=== PATIENT | female | born 1970 | race Caucasian/White ===

== ENCOUNTER 2025-01-13 18:18 | Emergency (ER) | payer OTHER, SELFPAY ==
[2025-01-13] VITALS (49 sets, daily range): BP systolic 116–190; BP diastolic 66–126; PULSE 70–112; O2SAT 94–100; BMI 28.3
[2025-01-13] MEDS: METHYLPREDNISOLONE SOD SUCC PF 125 MG/2 ML VIAL IVP (18:26)
[2025-01-13] MEDS: EPINEPHrine 1 MG/10 ML SYRINGE 0.3 MG IM (18:26)
[2025-01-13] MEDS: DIPHENHYDRAMINE HCL 50 MG/ML VIAL 25 MG IV (18:26)
[2025-01-13] MEDS: FAMOTIDINE/PF 20 MG/2 ML VIAL IV (18:26)
[2025-01-13] MEDS: 0.9 % SODIUM CHLORIDE 1,000 ML 250 ML IV (18:32)
--- NOTE | 2025-01-13 18:47 | ECG_ITS ---
[facility] Test Date: 2025-01-13 Pat Name: LYNSEY FONG Department: Room: - Gender: Female Rn Ed: : 1970 Requested By: [id number] Order Number: [id number] Reading MD: FAIZA LEHMAN M.D. Measurements Intervals Waldo Rate: 71 P: 54 IL: 124 QRS: 28 QRSD: 88 T: 50 QT: 402 QTc: 425 Interpretive Statements 1100 Sinus rhythm 9110 normal ECG No previous ECG available for comparison Electronically Signed On 01-14-2025 21:41:31 EDT by FAIZA LEHMAN M.D.
[2025-01-13 18:53] LABS: Basophils Absolute Auto 0.1 10^3/uL (0.0-0.1); Basophils Percent Auto 0.9 % (0.2-2.0); Eosinophils Absolute Auto 0.1 10^3/uL (0.0-0.7); Eosinophils Percent Auto 1.9 % (0.9-7.0); Hematocrit 39.3 % (36.0-48.0); Hemoglobin 13.3 g/dL (12.0-16.0); Immature Granulocytes Abs Auto 0.02 10^3/uL (0.00-0.03); Immature Granulocytes Pct Auto 0.3 % (0.0-0.5); Lymphocytes Absolute Auto 1.7 10^3/uL (1.2-3.8); Lymphocytes Percent Auto 29.7 % (20.5-60.0); Mean Corpuscular HGB Conc 33.8 g/dL (29.9-35.2); Mean Corpuscular Hemoglobin 29.5 pg (26.7-34.0); Mean Corpuscular Volume 87.1 fL (81.0-99.0); Mean Platelet Volume 10.5 fL (9.5-13.5); Monocytes Absolute Auto 0.4 10^3/uL (0.3-0.8); Monocytes Percent Auto 7.2 % (1.7-12.0); Neutrophils Absolute Auto 3.5 10^3/uL (1.4-6.5); Platelet Count 303 10^3/uL (150-450); Red Blood Count 4.51 10^6/uL (4.20-5.40); Red Cell Distribution Width 12.8 % (11.0-15.0); White Blood Count 5.8 10^3/uL (4.0-11.0)
[2025-01-13] MEDS: FENTANYL CITRATE/PF 100 MCG/2 ML VIAL 50 MCG IV ×2 (18:56→19:06)
[2025-01-13] MEDS: PROPOFOL 200 MG/20 ML VIAL 150 MG IVP (18:59)
[2025-01-13] MEDS: PROPOFOL 1,000 MG/100 ML VIAL 2.245 MG IV (19:05)
--- NOTE | 2025-01-13 19:06 | ED_ITS ---
HPI - Allergic Reaction General Chief complaint: Allergic Reaction Stated complaint: POSS ALLERGIC REACTION Time Seen by Provider: 01/13/25 18:20 Source: patient Mode of arrival: walk-in Limitations: no limitations History of Present Illness HPI narrative: The patient is 54-year-old female was coming to the ER with a history of recent dental infection although she was not specifically seen by his dentist yet, the patient is coming with a oral swelling that has been going on for the last according to her at least 20 minutes although it could be more than that she has been applying Orajel for her dental problem, patient has been having swelling with difficulty speaking that showed up over the last 20 minutes She denied any exposure to any new medication she used ibuprofen for her dental pain as well but she did not do that before and the Orajel she has been applying for the last week at least Related Data Allergies Allergy/AdvReac Type Severity Reaction Status Date / Time nitrofurantoin (From Allergy Severe Anaphylaxis Verified 01/13/25 18:21 Macrobid) Review of Systems ROS Status of ROS 10 or more systems reviewed and unremark able except as noted in history and below PFSH PFSH Social History Little interest or pleasure in doing things: not at all Feeling down, depressed, or hopeless: not at all Exam Narrative Exam Narrative: Nurses notes and vital signs reviewed and patient is not hypoxic. General: Crying distressed Skin: Warm, dry, no pallor noted. No rash. Head: Normocephalic, atraumatic. Neck: Supple, non-tender. Eye: Pupils are equal, round and EOMI. No scleral icterus. Ears, Nose, Mouth, and Throat: T significant swelling noted in the airway, with angioedema like in the upper palate and the tongue is not swollen. Cardiovascular: Regular Rate and Rhythm without murmur, gallop or rub. Respiratory: No accessory muscle use or respiratory distress. Lungs are clear to auscultation, no wheezing, rales or rhonchi Chest Wall: no tenderness Back: No midline thoracic or lumbar vertebral tenderness. No CVA tenderness Musculoskeletal: normal ROM, no calf or popliteal tenderness, no lower extremity edema/swelling GI: Abdomen is soft, non-distended. Normal bowel sounds. No masses appreciated. No tenderness to palpation. No rebound, guarding, or rigidity noted. Neurological: A&O x4. No cranial nerve dysfunction observed. No truncal ataxia. Moves all extremities. Sensation intact. Psychiatric: Cooperative and interactive. Normal mood and affect. Constitutional Vital Signs, click to edit/add: Last Vital Signs Pulse 79 01/13/25 18:21 Resp 22 H 01/13/25 18:21 BP 188/88 H 01/13/25 18:21 Pulse Ox 99 01/13/25 18:21 O2 Del Method Room Air 01/13/25 18:21 Course Vital Signs Vital signs: Vital Signs Pulse Rate 79 01/13/25 18:21 Respiratory Rate 22 H 01/13/25 18:21 Blood Pressure 188/88 H 01/13/25 18:21 Pulse Oximetry 99 01/13/25 18:21 Oxygen Delivery Method Room Air 01/13/25 18:21 Pulse Rate 79 01/13/25 18:21 Respiratory Rate 22 H 01/13/25 18:21 Blood Pressure 188/88 H 01/13/25 18:21 Pulse Oximetry 99 01/13/25 18:21 Oxygen Delivery Method Room Air 01/13/25 18:21 MDM - Allergic Reaction MDM Narrative Medical decision making narrative: The patient was intubated being conscious initially 7.5 tube size The patient then was starting propofol after the propofol bolus Workup still pending after the initial Solu-Medrol Benadryl and epinephrine in addition to Pepcid that were given to cover Allergy Lab Data Labs: Lab Results 01/13/25 Range/Units 18:33 WBC 5.8 (4.0-11.0) 10^3/uL RBC 4.51 (4.20-5.40) 10^6/uL Hgb 13.3 (12.0-16.0) g/dL Hct 39.3 (36.0-48.0) % MCV 87.1 (81.0-99.0) fL MCH 29.5 (26.7-34.0) pg MCHC 33.8 (29.9-35.2) g/dL RDW 12.8 (11.0-15.0) % Plt Count 303 (150-450) 10^3/uL MPV 10.5 (9.5-13.5) fL Neut % (Auto) 60.0 (43.0-75.0) % Lymph % (Auto) 29.7 (20.5-60.0) % Hubbard % (Auto) 7.2 (1.7-12.0) % Eos % (Auto) 1.9 (0.9-7.0) % Baso % (Auto) 0.9 (0.2-2.0) % Neut # (Auto) 3.5 (1.4-6.5) 10^3/uL Lymph # (Auto) 1.7 (1.2-3.8) 10^3/uL Hubbard # (Auto) 0.4 (0.3-0.8) 10^3/uL Eos # (Auto) 0.1 (0.0-0.7) 10^3/uL Baso # (Auto) 0.1 (0.0-0.1) 10^3/uL Abs Immat Gran (auto) 0.02 (0.00-0.03) 10^3/uL Imm/Tot Granulo (auto) 0.3 (0.0-0.5) % Critical Care Time Critical Care Time Critical Care Time: Yes Total Critical Care Time: 45 Attestation: Between intubation multiple checks before the intubation and multiple trigger for that Discharge Plan Discharge Patient Disposition: Still a Patient
[2025-01-13 19:12] LABS: Alanine Aminotransferase 29 U/L (14-59); Albumin Globulin Ratio 1.4; Alkaline Phosphatase 96 U/L (46-116); Anion Gap 11.3; Aspartate Amino Transferase 17 U/L (15-37); BUN Creatinine Ratio 17.3; Bilirubin Total 0.3 mg/dL (0.2-1.0); Calcium 8.9 mg/dL (8.5-10.1); Carbon Dioxide 27.5 mmol/L (21.0-32.0); Chloride 105 mmol/L (98-107); Estimated GFR (African America >60 (>=60 mL/min/1.73m^2); Estimated GFR (Non-African Ame 59 (>=60 mL/min/1.73m^2); Globulin 2.8 g/dL; Glucose 135 mg/dL (74-106); Potassium 3.8 mmol/L (3.5-5.1); Sodium 140 mmol/L (136-145); Total Protein 6.8 g/dL (6.4-8.2)
[2025-01-13] MEDS: LORAZEPAM 2 MG/ML VIAL 1 MG IV ×2 (19:15→19:22)
[2025-01-13 19:16] LABS: Troponin I High Sensitivity 5.3 pg/mL (4.0-51.3)
[2025-01-13 19:44] LABS: Allen Test POSITIVE (POSITIVE); Base Excess ABG -2.4 mmol/L (-2.0-2.0); Fractionated Inspired Oxygen 30 %; HCO3 ABG 23.4 mmol/L (22.0-26.0); O2 Mode VENTILATOR; Oxygen Saturation ABG 97.7 %; Puncture Site R RADIAL; Rate 18; Tidal Volume 350; Vent Mode A/C; pH ABG 7.334 (7.350-7.450)
[2025-01-13] MEDS: FENTANYL CITRATE/PF 1,000 MCG in 0.9 % SODIUM CHLORIDE 80 ML 3.742 MCG IV (20:00)
[2025-01-13] MEDS: MIDAZOLAM HCL 50 MG/10 ML IV (20:53)
[2025-01-13] MEDS: MIDAZOLAM HCL 100 MG in 0.9 % SODIUM CHLORIDE 80 ML IV (20:54)
--- NOTE | 2025-01-13 21:43 | PC.NURSE ---
This Rn took over care for this patient at shift change. At 1854, I entered the patient room where the previous shift physician and RN were preparing to intubate this patient due to angioedema. The patient was awake at this time. RT was at the bedside. After patient and her were educated on what was going to occur, patient was medicated. Intubation was achieved and successful at 190 with a 7.5 cuffed tube that was secured at 27 at the teeth. Xray was done, Dr. Wise decided to move the tube out to 26 at the teeth at 191. Repeat Xray was done and tube remained secured at 26. Patient was difficult to get comfortable and sedated. Propofol drip was titrated appropriately from 5mcg/kg/min up to 55mcg/kg/min. Fentanyl drip was started to assist with sedation, started at 0.5mcg/kg/hr and titrated up to 1mcg/kg/hr, and finally a versed drip was added, started at 1mg/hr and remains there. Patient is resting comfortably at this time, vital signs remain WNL. Family remains at bedside.
[2025-01-13] MEDS: PROPOFOL 1,000 MG/100 ML VIAL 24.698 MG IV (22:56)
== END 2025-01-13 23:36 | disposition short-term general hospital (02) ==
PROVIDERS: Emergency Medicine; Emergency Provider Emergency Medicine
DX: T78.3XXA Angioneurotic edema, initial encounter (principal)
CPT/HCPCS: 31500; 36415; 36600; 71045; 80053; 82805; 84484; 85025; 87040; 93005; 94002; 96365; 96366; 96368; 96372; 96375; 96376; 99291; J0171; J1200; J2060; J2250; J2704; J2919; J3010; J3490